=== PATIENT | male | born 1980 | race Caucasian/White ===

== ENCOUNTER → 2019-04-15 | Outpatient (CLI) | payer OTHER ==
[~2019-04-15] MED LIST: IOHEXOL 300 MG/ML 100ML VIAL. IV ONE
--- NOTE | 2019-04-15 15:27 | RAD ---
CT SOFT TISSUE NECK W/CONTRAST Indication: Large solid mass in the submandibular region Technique: Postcontrast CT imaging was performed of the neck, multiplanar reconstruction images submitted. One or more of the following individualized dose reduction techniques were utilized for this examination: 1. Automated exposure control 2. Adjustment of the mA and/or kV according to patient size 3. Use of iterative reconstruction technique. Comparison: None Findings: Corresponding with site of palpable concern in the left submandibular region, there is a large hypodense circumscribed lesion which has internal density characteristics suggestive of fluid about 17 Hounsfield units. This in greatest dimension measures about 5.8 cm CC by 5.5 cm transverse by 5.8 cm AP. This extends just beneath the skin surface, located superficial to the platysma. This abuts the lateral margin of left submandibular gland which is displaced more medially. The lesion does not appear to be centered in the submandibular gland. Parotid glands are symmetric in appearance. Parapharyngeal fat planes are maintained. No significantly enlarged nodes are identified of the neck. There is [id number] left greater than right maxillary sinus mucosal thickening, no air-fluid levels. There is some patchy moderate to severe ethmoid air cell mucosal thickening. There is hypodense nodule of the right thyroid gland posteriorly estimated about 1 cm. There is mild emphysema near lung apices.. There is incomplete developmental fusion of posterior elements and left pedicle of C6. IMPRESSION: 1. Site of palpable concern in the left submandibular region corresponds with a large superficial cystic lesion directly beneath the skin surface apparently superficial to the platysma. This abuts the submandibular gland which is more medially compressed although does not appear to directly arise within the submandibular gland. 2. There is right thyroid nodule better evaluated by ultrasound. 3. There is incomplete developmental fusion of posterior elements and left pedicle C6. 4. There is paranasal sinus mucosal thickening as stated. Electronically signed by: Bryce Swanson MD (04/15/2019 3:24 PM) [place] [id number]
== END | disposition home or self-care (01) ==
LOC: CT 13:18
PROVIDERS: ATTEND Family Medicine
DX: E04.1 Nontoxic single thyroid nodule (principal); J34.89 Other specified disorders of nose and nasal sinuses
CPT/HCPCS: 70491; Q9967